=== PATIENT | female | born 1940 | race Caucasian/White ===

== ENCOUNTER 2017-08-14 13:46 | Outpatient (CLI) | payer MEDICARE, OTHER ==
--- NOTE | 2017-08-15 12:33 | DEXA Report ---
DEXA SCAN: 08/14/2017 CLINICAL INDICATION: Postmenopausal. TECHNIQUE: Dual energy x-ray absorptiometry (DXA) was performed on a [employer] system. Regions measured are the AP spine, femoral neck, and, if needed, forearm. COMPARISON: None. In accordance with the International Society for Clinical Densitometry (ISCD) guidelines, data from previous exams may be reanalyzed using current recommendations and techniques. This is done to allow a more accurate basis for comparison with the current study. FINDINGS The data for the lumbar spine is as follows: REGION BMD (g/cm/cm) T-SCORE Z-SCORE L1 0.756 -3.1 -1.0 L2 1.007 -1.6 0.5 L3 1.254 0.5 2.5 L4 1.378 1.5 3.6 TOTAL 1.103 -0.6 1.4 NOTE: All evaluable vertebrae are used for classification. The data for the hip is as follows: REGION BMD (g/cm/cm) T-SCORE Z-SCORE Neck 0.843 -1.4 0.9 TOTAL 0.709 -2.4 -0.2 NOTE: The femoral neck or total proximal femur, whichever is lowest, is used for classification. IMPRESSION THE WHO CLASSIFICATION BASED ON THE INTERNATIONAL REFERENCE STANDARD IS OSTEOPENIA. THE FRACTURE RISK IS INCREASED. RECOMMENDATION: Patients with diagnosis of osteoporosis or osteopenia should have regular bone mineral density assessment. For those eligible for Medicare, routine testing is allowed once every 2 years. Testing frequency can be increased for patients who have rapidly progressing disease or for those who are receiving medical therapy to restore bone mass. COMMENT: World Health Organization (WHO) definitions for osteoporosis and osteopenia: NORMAL BMD: T-score at 1.0 or higher, fracture risk is low. OSTEOPENIA BMD: T-score between 1.0 and -2.5, fracture risk is increased. OSTEOPOROSIS BMD: T-score at 2.5 or lower, fracture risk high. National Osteoporosis Foundation recommends: 1. Obtain adequate dietary calcium (at least 1200 mg per day) and vitamin D (400 -800 international units per day). 2. Participate, as appropriate, in regular weightbearing and muscle- strengthening exercise. 3. Avoid tobacco use and reduce alcohol and caffeine intake. 4. For more detailed information see the website at www.NOF.org. TD: 08/14/2017 18:14 DELIA
== END 2017-08-14 13:47 | disposition home or self-care (01) ==
LOC: DI 13:46
PROVIDERS: ATTEND Internal Medicine
DX: M85.88 Other specified disorders of bone density and structure, other site (principal)
CPT/HCPCS: 77080

== ENCOUNTER 2017-08-22 11:13 | Outpatient (CLI) | payer MEDICARE, OTHER ==
--- NOTE | 2017-08-22 20:06 | CT Report ---
DATE OF SERVICE: 08/22/2017 CT CHEST WITHOUT CONTRAST: 08/22/2017 CLINICAL INDICATION: Chronic cough. Axial CT images of the chest were obtained without intravenous contrast. In accordance with CT protocol optimization, one or more of the following dose reduction techniques were utilized for this exam: Automated exposure control, adjustment of mA and/or KV based on patient size, or use of iterative reconstructive technique. No previous CT is available for comparison The heart and great vessels demonstrate extensive atherosclerotic calcifications. No hilar or mediastinal lymphadenopathy is present. Pectus deformity is incidentally noted. The lungs demonstrate mild emphysema. No pulmonary nodule or mass lesion is appreciated. No focal infiltrate or interstitial edema is appreciated. No effusion or pneumothorax is present. Osseous structures demonstrate pectus deformity and degenerative changes. Limited evaluation of upper abdominal structures demonstrates normal adrenal glands. IMPRESSION: Mild emphysema. TD: 08/22/2017 21:05
== END 2017-08-22 11:14 | disposition home or self-care (01) ==
LOC: DI 11:13
PROVIDERS: ATTEND Internal Medicine
DX: R05 Cough (principal); J43.9 Emphysema, unspecified
CPT/HCPCS: 71250

== ENCOUNTER 2021-01-19 12:47 | Outpatient (CLI) | payer MEDICARE, OTHER ==
--- NOTE | 2021-01-19 14:25 | DEXA Report ---
PROCEDURE: Dexa Spine and/or Hip INDICATIONS: OSTEOPOROSIS TECHNIQUE: Dual energy x-ray absorptiometry (DXA) was performed on a [employer] System. Regions measur ed are the AP Spine, femoral neck, and if needed forearm. COMPARISON: DEXA 08/14/2017 FINDINGS: Lumbar Spine: Bone Mineral Density 1.114 g/cm/cm,T score -0.5, compared to -0.6 Left Hip: Bone Mineral Density 0.714 g/cm/cm,T score -2.3, compared to -2.4 Left Femoral Neck: Bone Mineral Density 0.805 g/cm/cm, T score -1.7, compared to -1.4 (T score greater or equal to -1.0: NORMAL) (T score from -1.1 to -2.4: OSTEOPENIA) (T score less than or equal to -2.5 to: OSTEOPOROSIS) Impression: Borderline osteoporosis within the left hip minimally less prominent when compared to julia or exam. There is progression of now moderate osteopenia within the left femoral neck. Patients with diagnosis of osteoporosis or osteopenia should have regular bone mineral density assess ment. For those eligible for Medicare, routine testing is allowed once every 2 years. Testing frequ ency can be increased for patients who have rapidly progressing disease or for those who are receivin g medical therapy to restore bone mass. Reviewed by: Shannan Coronado MD on 01/19/2021 2:23 PM PDT Approved by: Shannan Coronado MD on 01/19/2021 2:23 PM PDT Station ID: [id number]
== END 2021-01-19 12:48 | disposition home or self-care (01) ==
LOC: DI 12:47
PROVIDERS: ATTEND Internal Medicine
DX: M81.0 Age-related osteoporosis without current pathological fracture (principal)

== ENCOUNTER 2021-07-15 17:30 | Outpatient (CLI) | payer MEDICARE, OTHER | END 2021-07-15 17:31 | disposition critical access hospital (66) | LOC: EMS 17:30 | DX: S01.81XA Laceration without foreign body of other part of head, initial encounter (principal); R04.0 Epistaxis; W18.39XA Other fall on same level, initial encounter; Y93.01 Activity, walking, marching and hiking; Y92.512 Supermarket, store or market as the place of occurrence of the external cause | CPT/HCPCS: A0425; A0429 ==

== ENCOUNTER 2021-07-15 17:46 | Inpatient (IN) | payer MEDICARE, OTHER ==
[2021-07-15] MEDS ORDERED: OXYMETAZOLINE HCL 100 SPRAYS BOTTLE NAS STA (18:06)
--- NOTE | 2021-07-15 18:06 | ED Physician Documentation ---
PD HPI MAJOR TRAUMA - Stated complaint Stated Complaint: GLF - Chief complaint Chief Complaint: Trauma Hd/Nk - History obtained from History obtained from: Patient - Additional information Additional information: Trip and fall hitting her face on the ground, also injuring the left wrist. He is very congested and had nosebleed after the accident. There was no loss of consciousness, and she is not anticoagulated. Other than the face and left wrist, no other injuries. She is up-to-date on tetanus. She declines pain medication on initial evaluation. She would like something for the nasal conge stion. Review of Systems Ten Systems: 10 systems reviewed and negative Constitutional: reports: Reviewed and negative Cardiac: reports: Reviewed and negative Respiratory: reports: Reviewed and negative PD PAST MEDICAL HISTORY - Allergies Allergies/Adverse Reactions: Allergies Allergy/AdvReac Type Severity Reaction Status Date / Time pravastatin Allergy Unknown Verified 07/15/21 19:59 PD ED PE NORMAL - Vitals Vital signs reviewed: Yes - General General: Alert and oriented X 3, No acute distress - HEENT HEENT: PERRL, EOMI, Other (Mild tenderness over the bridge of the nose and the left infraorbital rim. No evidence of entrapment. Evidence of resolved right sided epistaxis. She has a puncture wound on the inner upper left lip without dental tenderness.) - Neck Neck: No bony TTP - Cardiac Cardiac: RRR, No murmur - Respiratory Respiratory: No respiratory distress, Clear bilaterally - Abdomen Abdomen: Non tender - Extremities Extremities: No edema, No calf tenderness / cord, Other (Tenderness over the distal radius on the left without pain with axial loading of the thumb or snuffbox tenderness.) - Neuro Neuro: Alert and oriented X 3, Normal speech - Psych Psych: Normal mood, Normal affect Results - Vitals Vitals: Vital Signs - 24 hr 07/15/21 17:58 Temperature 36.4 C L Heart Rate 93 Respiratory 15 Rate Blood Pressure 205/98 H O2 Saturation 99 Oxygen O2 Source Room air - Labs Labs: Laboratory Tests 07/15/21 07/15/21 07/15/21 19:29 19:29 19:29 WBC 12.8 H RBC 4.02 L Hgb 13.4 Hct 38.8 MCV 96.5 MCH 33.3 H MCHC 34.5 RDW 13.1 Plt Count 236 MPV 9.5 Neut # (Auto) 11.0 H Lymph # (Auto) 0.8 L Preble # (Auto) 0.8 Eos # (Auto) 0.0 Baso # (Auto) 0.1 Absolute Nucleated RBC 0.00 Nucleated RBC % 0.0 PT 11.5 INR 1.0 Sodium 130 L Potassium 4.0 Chloride 95 L Carbon Dioxide 25 Anion Gap 10.0 BUN 20 Creatinine 0.6 Estimated GFR (MDRD) 95 Glucose 110 H Calcium 9.2 - Rads (name of study) CT head and cervical spine Radiology: EMP read contemporaneously CT Face Radiology: EMP read contemporaneously (CT of the maxillofacial shows complex fractures with elements of LeFort and ZMC fractures, left inferior orbital floor fracture, tooth fragment in the right posterior nasopharynx) L wrist XR Radiology: EMP read contemporaneously (NAD) PD MEDICAL DECISION MAKING - ED course ED course: 81-year-old woman with ground-level fall onto her face with complex facial fractures seen on CT which would be considered an unstable injury as well as a retained tooth in the posterior nasopharynx. Dr. Girma Nolasco was consulted and came in to consult on the patient and plans to take her to the OR tomorrow morning for operative fixation. Dr. Fischer our hospitalist will place in observation for medical management and blood pressure management noting fairly high readings here pending surgery tomorrow. Departure - Departure Disposition: ED Place in Observation Clinical Impression: [place] fracture Qualifiers: Encounter type: initial encounter Fracture type: closed Fracture of zygomatic complex Qualifiers: Encounter type: initial encounter Fracture type: closed Laterality: unspecified laterality Qualified Code(s): S02.402A - Zygomatic fracture, unspecified side, initial encounter for closed fracture; S02.30XA - Fracture of orbital floor, unspecified side, initial encounter for closed fracture; S02.401A - Maxillary fracture, unspecified side, initial encounter for closed fracture; S02.80XA - Fracture of other specified skull and facial bones, unspecified side, initial encounter for closed fracture Left wrist sprain Qualifiers: Encounter type: initial encounter Qualified Code(s): S63.502A - Unspecified sprain of left wrist, initial encounter Condition: Fair Discharge Date/Time: 07/15/21 20:48
--- NOTE | 2021-07-15 18:38 | XRAY Report ---
PROCEDURE: Wrist 4 View LT INDICATIONS: Wrist pain and injury TECHNIQUE: 4 views of the wrist were acquired. COMPARISON: None FINDINGS: There is no evidence of fracture. The scaphoid and remaining carpal bones appear intact on each view. There is moderate to severe first CMC osteophyte is catheterized by joint space narrowing, subchondr al sclerosis and cystic change, and marginal osteophytosis. There are a few tiny osseous densities la terally adjacent to the first CMC joint with smooth sclerotic borders which likely represent either r emote fracture fragments or intra-articular loose bodies. There is soft tissue swelling adjacent to t he first CMC. No radiopaque foreign body. IMPRESSION: No evidence of acute fracture or dislocation. 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 Soft tissue swelling adjacent to the first CMC could be traumatic or arthritic in nature. Reviewed by: Reno Hearn MD on 07/15/2021 6:37 PM PST Approved by: Reno Hearn MD on 07/15/2021 6:37 PM PST Station ID: [id number]
--- NOTE | 2021-07-15 19:17 | CT Report ---
PROCEDURE: HEAD WO INDICATIONS: fall, head inj TECHNIQUE: Noncontrast 4.5 mm thick angled axial sections acquired from the foramen magnum to the vertex. For r adiation dose reduction, the following was used: automated exposure control, adjustment of mA and/or kV according to patient size. COMPARISON: None. FINDINGS: No acute intracranial hemorrhage, abnormal extra axial fluid collection, mass effect, or midline shif t. Holguin-white matter differentiation is maintained, without CT evidence of acute infarct. Mild global cerebral volume loss with opacification of the ventricles and extra-axial spaces. The ventricular sy stem and basilar cisterns are patent. Calvarium and skull base are intact. Multiple facial fractures, described in maxillofacial CT report which is dictated separately. IMPRESSION: No acute intracranial finding. Reviewed by: Reno Hearn MD on 07/15/2021 7:16 PM PST Approved by: Reno Hearn MD on 07/15/2021 7:16 PM PST Station ID: [id number]
--- NOTE | 2021-07-15 19:19 | CT Report ---
PROCEDURE: CERVICAL SPINE WO INDICATIONS: Trauma TECHNIQUE: Noncontrast 3 mm thick sections acquired from the skull base to the T4 level. Sagittal and coronal r eformats were then constructed. For radiation dose reduction, the following was used: automated exp osure control, adjustment of mA and/or kV according to patient size. COMPARISON: None. FINDINGS: There is no fracture or dislocation. Straightening of the usual cervical lordosis. No listhesis. No s ubluxation or dislocation. Overall moderate to severe degenerative changes at every level of the cerv ical spine from C3-C4 through C6-C7. No suspicious lytic or blastic osseous lesion. Normal configurat ion of the craniocervical junction. Moderate emphysematous changes in the lung apices. Extensive aort ic and carotid atherosclerotic changes. IMPRESSION: No CT evidence of acute traumatic cervical spine injury. Reviewed by: Reno Hearn MD on 07/15/2021 7:18 PM PST Approved by: Reno Hearn MD on 07/15/2021 7:18 PM PST Station ID: [id number]
--- NOTE | 2021-07-15 19:31 | CT Report ---
PROCEDURE: MAXILLOFACIAL WO INDICATIONS: fall, head inj TECHNIQUE: Noncontrast 1.5 mm thick axial images acquired from the mandible through the frontal sinuses, with co alma rosa and sagittal reformatting. For radiation dose reduction, the following was used: automated ex posure control, adjustment of mA and/or kV according to patient size. COMPARISON: None. FINDINGS: There are numerous facial bones fracture: Mildly displaced left second metacarpal bone fracture near the junction with the greater wing sphenoi d. Mildly displaced and comminuted left inferior orbital floor fracture. No associated intraocular muscl e entrapment. Bilateral lateral maxillary wall fractures, displaced and comminuted. Bilateral medial maxillary sinus wall fractures, highly comminuted and displaced. Comminuted and displaced bony nasal septal fractures and bilateral nasal bone fractures. Mildly displaced fractures of the right lateral pterygoid. Left pterygoid plates intact. Displaced and comminuted fracture of the left maxilla (series 5 image 66). Intact mandible. There is a tooth fragment within the right nasopharynx embedded in the right nasopharyngeal wall soft tissues. Extensive diffuse hemorrhagic aerated secretions throughout the nasal passages and paranasal sinuses. IMPRESSION: Complex bilateral mid radius fractures with elements of LeFort and ZMC complex. Of note, left inferior orbital floor fracture, displaced and comminuted, without inferior EOM entrapm ent. Tooth fragment in the right posterior nasopharynx. Retrieval recommended. Reviewed by: Reno Hearn MD on 07/15/2021 7:30 PM PST Approved by: Reno Hearn MD on 07/15/2021 7:30 PM PST Station ID: [id number]
[2021-07-15 19:35] LABS: BASOPHILS # (AUTO) 0.1 10^3/uL (0.0-0.1); BASOPHILS % (AUTO) 0.6 %; EOSINOPHILS % (AUTO) 0.3 %; HCT - HEMATOCRIT 38.8 % (37.0-47.0); HGB - HEMOGLOBIN 13.4 g/dL (12.0-16.0); LYMPHOCYTES # (AUTO) 0.8 10^3/uL (1.5-3.5); LYMPHOCYTES % (AUTO) 6.4 %; MEAN CORPUSCULAR HEMOGLOBIN 33.3 pg (27.0-31.0); MEAN CORPUSCULAR HGB CONC 34.5 g/dL (32.0-36.0); MEAN CORPUSCULAR VOLUME 96.5 fL (81.0-99.0); MEAN PLATELET VOLUME 9.5 fL (7.9-10.8); MONOCYTES # (AUTO) 0.8 10^3/uL (0.0-1.0); MONOCYTES % (AUTO) 6.2 %; NEUTROPHILS % (AUTO) 86.1 %; PLT - PLATELET COUNT 236 10^3/uL (130-450); RED BLOOD COUNT 4.02 10^6/uL (4.20-5.40); RED CELL DISTRIBUTION WIDTH 13.1 % (12.0-15.0); WHITE BLOOD COUNT 12.8 x10^3/uL (4.8-10.8)
[2021-07-15 19:42] LABS: PT - PROTHROMBIN TIME 11.5 secs (9.9-12.6)
[2021-07-15 19:44] LABS: CALCIUM 9.2 mg/dL (8.5-10.3); CREATININE 0.6 mg/dL (0.4-1.0)
[2021-07-15] MEDS ORDERED: oxyCODONE 5 MG TABLET PO PRN (19:48)
[2021-07-15] MEDS ORDERED: HYDROmorphone 0.5 MG/0.5 ML SYRINGE IVP PRN (19:48)
[2021-07-15] MEDS ORDERED: ONDANSETRON 4 MG/2 ML VIAL IVP PRN (19:48)
[2021-07-15] MEDS ORDERED: SODIUM CHLORIDE FLUSH 0.9% 10 ML SYRINGE IVP PRN (19:48)
[2021-07-15] MEDS ORDERED: ACETAMINOPHEN 325 MG TABLET PO PRN (19:48)
[2021-07-15] MEDS ORDERED: HYDROmorphone 1 MG/ML CARPUJECT IVP STA (19:53)
[2021-07-15] MEDS ORDERED: KETOROLAC 30 MG/ML VIAL IVP STA (19:53)
[2021-07-15] MEDS ORDERED: LABETALOL 20 MG/4 ML SYRINGE IVP PRN (19:59)
[2021-07-15] MEDS ORDERED: hydrALAZINE INJ 20 MG/ML VIAL IVP PRN (20:00)
--- NOTE | 2021-07-15 20:02 | HISTORY & PHYSICAL EXAMINATION ---
Chief Complaint - Chief Complaint Chief Complaint: s/p mechanical fall History of Present Illness - Admitted From Admitted From:: [facility] ED - History Obtained From Records Reviewed: yes History obtained from: patient - History of Present Illness HPI Comment/Other: Patient is an 81-year-old female who presented to the ED after a mechanical f all. She was living [employer] in [place] around 5 PM when she stepped off the curb lost her footing and fell on the left side hitting the left side of her face. It was a witnessed fall. She did not blackout. She denied dizziness prior to the episode. She has bruising on her left wrist as well. Currently at bedside she denies double vision, blurry vision or headaches. She also denies chest pain, dyspnea, abdominal pain, nausea, vomiting, fever or chills. Work-up in the ED included CT of the head neck and maxillofacial structures. This showed complex bilateral mid radius fractures with elements of LeFort and ZMC complex of note, left inferior orbital floor fracture, displaced and commi nuted, without inferior EOM extract meant. It was reported that tooth fragment in the right posterior nasopharynx for which retrieval was recommended however patient was seen by Dr. Girma Nolasco who ma intains that the patient has no dentition. Note of the patient's presentation and the current findings she was admitted for further treatment. History - Past Medical History Cardiovascular: reports: Hypertension Other Past Medical History: History of colon cancer status post hemicolectomy. - Past Surgical History General: reports: Bowel surgery HEENT: reports: Tonsil/Adenoidectomy - Family & Social History Family History Comment/Other: Patient denies any significant family history. Living arrangement: At home Social History Notes: She lives at home with her . She is independent of activities of daily living. She smokes about half a pack of cigarettes daily and has been smoking for 40+ years. She drinks a glass of wine daily. She does not use any recreational substances. - POLST Patient has POLST: No POLST Status: Full Code Meds/Allgy - Allergies Allergies/Adverse Reactions: Allergies Allergy/AdvReac Type Severity Reaction Status Date / Time pravastatin Allergy Unknown Verified 07/15/21 19:59 Review of Systems - Constitutional Constitutional: denies: Fatigue, Fever, Chills, Weakness - Eyes Eyes: denies: Pain, Blurred vision, Vision loss, Dipolpia - Ears, Nose & Throat Ears, Nose & Throat: denies: Ear pain, Sore throat, Hoarseness - Cardiovascular Cariovascular: denies: Irregular heart rate, Chest pain, Edema - Respiratory Respiratory: denies: Cough, Wheezing, SOB at rest, SOB with exertion - Gastrointestinal Gastrointestinal: denies: Abdominal pain, Abdominal distention, Nausea, Vomiting, Reflux/heartburn - Genitourinary Genitourinary: denies: Dysuria, Frequency, Urgency, Hematuria - Musculoskeletal Musculoskeletal: denies: Muscle pain, Back pain, Muscle aches - Integumentary Integumentary: denies: Rash, Pruritis - Neurological Neurological: denies: General weakness, Focal weakness, Headache, Dizziness - Psychiatric Psychiatric: denies: Depression, Anxiety - Endocrine Endocrine: denies: Polyuria, Polydypsia - Hematologic/Lymphatic Hematologic/Lymphatic: denies: Anemia, Bruising, Petechiae Prior Level of Functionality: Independent of activities of daily living. Exam - Vital Signs Vital Signs: Vital Signs x48h Temp Pulse Resp BP Pulse Ox 07/15/21 17:58 97.5 C H 93 15 205/98 H 99 - Physical Exam General Appearance: positive: Alert, Moderate distress, Other Eyes Bilateral: positive: PERRL, EOMI ENT: positive: Other (Left facial swelling and bruising.) Neck: positive: No JVD, Trachea midline Respiratory: positive: Chest non-tender, No respiratory distress, Breath sounds nml. negative: Wheezes, Rales, Rhonchi Cardiovascular: positive: Regular rate & rhythm, No murmur Abdomen: positive: Non-tender, No organomegaly, Nml bowel sounds, No distention. negative: Guarding, Rebound Back: positive: Nml inspection, CVA tenderness (R) Skin: positive: Other (Bruising on the left side of the face and swelling. Bruising on the left wrist as well.) Extremities: positive: No pedal edema, Other (Left wrist bruising) Neurologic/Psychiatric: positive: Oriented x3, Mood/affect nml Conclusion/Plan - Problem List (1) Fracture of zygomatic complex Conclusion/Plan: Patient is currently on full liquid diet. She will be n.p.o. after midnight. IV hydration with normal saline at 75 mL/h. Pain management with Dilaudid and Toradol IV. Dr. Girma Nolasco with maxillofacial surgery was consulted and saw the patient at bedside. He plans for surgery in the morning. Patient's jaw will be wired shut and this will be maintained for 1 month. She would maintain a liquid diet for 1 month. Pain management as needed. Follow-up with Dr. Girma Nolasco in the outpatient setting. Qualifiers: Encounter type: initial encounter Fracture type: closed Laterality: unspecified laterality Qualified Code(s): S02.402A - Zygomatic fracture, unspecified side, initial encounter for closed fracture; S02.30XA - Fracture of orbital floor, unspecified side, initial encounter for closed fracture; S02.401A - Maxillary fracture, unspecified side, initial encounter for closed fracture; S02.80XA - Fracture of other specified skull and facial bones, unspecified side, initial encounter for closed fracture (2) Hypertensive urgency Conclusion/Plan: Systolic blood pressure was 205 at time of presentation to the ED. This was likely exacerbated by patient's pain. Patient takes lisinopril at home. Hydralazine and Labetalol ordered IV for systolic blood pressure greater than 160. (3) Left wrist sprain Conclusion/Plan: Pain management as needed. Qualifiers: Encounter type: initial encounter Qualified Code(s): S63.502A - Unspecified sprain of left wrist, initial encounter - Lab Results Fish Bones: 07/15/21 19:29 07/15/21 19:29 Core Measures - Anticipated LOS I expect patient to be DC'd or transferred within 96 hours.: Yes - DVT/VTE - Prophylaxis VTE/DVT Device ordered at admit?: Yes
--- NOTE | 2021-07-15 21:00 | CONSULTATION NOTE ---
Referring Provider Name of Referring Provider:: Carlin Cheema Consult Date: 07/15/21 Chief Complaint - Chief Complaint Chief Complaint: Facial trauma History of Present Illness - Admitted From Admitted From:: ER - History Obtained From Records Reviewed: Yes History obtained from: Records and patient - History of Present Illness HPI Comment/Other: 81 yo F s/p GLF, sustaining facial and wrist injuries. CT max face taken in ER, demonstrating multiple facial fractures. Wrist film negative for acute bony injury CT c-spine and head negative No LOC Accompanied by her . Mechanism: Trip and fall onto asphalt. Meds/Allgy - Allergies Allergies/Adverse Reactions: Allergies Allergy/AdvReac Type Severity Reaction Status Date / Time pravastatin Allergy Unknown Verified 07/15/21 19:59 Review of Systems - Constitutional Constitutional: denies: Fever, Malaise - Eyes Eyes: reports: Pain. denies: Blurred vision, Dipolpia - Ears, Nose & Throat Ears, Nose & Throat: denies: Ear pain, Hearing loss - Cardiovascular Cariovascular: denies: Irregular heart rate, Chest pain - Respiratory Respiratory: denies: Cough, Hemoptysis - Gastrointestinal Gastrointestinal: denies: Abdominal pain - Musculoskeletal Musculoskeletal: reports: Other (Pain in the L wrist when planting with the hand, otherwise negative) - Integumentary Integumentary: reports: Other (laceration of the upper lip) - Neurological Neurological: reports: Numbness. denies: Headache, Dizziness - Psychiatric Psychiatric: denies: Depression Exam - Vital Signs Reviewed Vital Signs: Yes Vital Signs: Vital Signs x48h Temp Pulse Resp BP Pulse Ox 07/15/21 17:58 36.4 C L 93 15 205/98 H 99 - Physical Exam General Appearance: positive: No acute distress, Alert Eyes Bilateral: positive: PERRL, EOMI (L periorbital edema and ecchymosis. Subconjunctival hemmorhage L. No diplopia. No enopthalmos or exophthalmos. Mild R periorbital ecchymosis w/out edema.) ENT: positive: Other (Open bite on the L. Maxilla mobile to bimanual manipulation. TTP, edema, ecchymosis of the L periobital, infraorbital regions and dorsum of the nose. Teeth intact, with a distinct step in the R maxillary anterior teeth. Oropharynx: examined w/ tongue blade and flashlight, no FB) Neck: positive: Other (No cervical spine ttp. Inferior border of the mandible nontender, no stepoffs.) Respiratory: positive: Chest non-tender, No respiratory distress Cardiovascular: positive: Regular rate & rhythm Peripheral Pulses: positive: 2+ Abdomen: positive: Non-tender, No distention Skin: positive: Other (Laceration of the L upper lip less than one cm, on the lenora, communicating w/ the oral mucosa where the laceration component is 1.5 cm) Extremities: positive: Full ROM (There is marked swelling and ecchymosis of the L dorsum of the hand.) Neurologic/Psychiatric: positive: CN's nml (2-12) (With exception of L V2 hypoesthesia) Conclusion and Plan - Lab Results Laboratory Results 07/15/21 19:29: Sodium 130 L, Potassium 4.0, Chloride 95 L, Carbon Dioxide 25, Anion Gap 10.0, BUN 20, Creatinine 0.6, Estimated GFR (MDRD) 95, Glucose 110 H, Calcium 9.2 07/15/21 19:29: PT 11.5, INR 1.0 07/15/21 19:29: WBC 12.8 H, RBC 4.02 L, Hgb 13.4, Hct 38.8, MCV 96.5, MCH 33.3 H, MCHC 34.5, RDW 13.1, Plt Count 236, MPV 9.5, Neut # (Auto) 11.0 H, Lymph # (Auto) 0.8 L, [place] # (Auto) 0.8, Eos # (Auto) 0.0, Baso # (Auto) 0.1, Absolute Nucleated RBC 0.00, Nucleated RBC % 0.0 - Diagnosis Diagnosis: Leforte Fracture - Consultation Note Consultation Note: 81 yo F s/p mechanical GLF onto asphalt sustaining the following maxillofacial injuries: 1. Lefort I fracture 2. L lateral orbtial rim fracture 3. Upper lip laceration 1.5 cm, involving the lenora 4. L orbital floor fracture w/out entrapment or significant orbital volume increase 5. Dentoalveolar fracture of the maxillary alveolus - Plan Plan: Plan: ORIF of the above injuries in the MOR tomorrow at 10:30 am. - Full liquid diet until midnight - NPO after midnight - Unasyn 3g q6h - elevate HOB - will search again for foreign body of the airway tomorrow when she is sedated. The fact that there are no teeth missing makes the likelihood of a FB low. - Peridex mouthrinse BID - nutrition consult for full liquid diet - anticipate one month of intermaxillary fixation and full liquid diet. Thank you for including me in the care of Mrs. Bose. Please let me know if you have any questions. Girma Nolasco DDS [phone]
[2021-07-15 21:06] LABS: B. PARAPERTUSSIS- RESP PCR PAN NOT DETECTED; B. PERTUSSIS- RESP PCR PANEL NOT DETECTED; C. PNEUMONIAE- RESP PCR PANEL NOT DETECTED; CORONAVIRUS 229E-RESP PCR NOT DETECTED; CORONAVIRUS HKU1-RESP PCR NOT DETECTED; CORONAVIRUS NL63-RESP PCR NOT DETECTED; CORONAVIRUS OC43-RESP PCR NOT DETECTED; HUMAN METAPNEUMOVIRUS NOT DETECTED; INFLUENZA A- RESP PCR PANEL NOT DETECTED; INFLUENZA B - RESP PCR PANEL NOT DETECTED; M. PNEUMONIAE- RESP PCR PANEL NOT DETECTED; PARAINFLUENZA VIRUS 1 NOT DETECTED; PARAINFLUENZA VIRUS 2 NOT DETECTED; PARAINFLUENZA VIRUS 3 NOT DETECTED; PARAINFLUENZA VIRUS 4 NOT DETECTED; RHINOVIRUS/ENTEROVIRUS NOT DETECTED; RSV- RESP PCR PANEL NOT DETECTED; SARS-CoV-2 -RESP PCR PANEL NOT DETECTED
[2021-07-15] MEDS: SODIUM CHLORIDE FLUSH 0.9% 10 ML SYRINGE IVP SCH (21:29)
[2021-07-15] MEDS: SODIUM CHLORIDE 0.9% 1,000 ML IV SCH (21:30)
[2021-07-16 05:43] LABS: BASOPHILS # (AUTO) 0.1 10^3/uL (0.0-0.1); EOSINOPHILS % (AUTO) 0.4 %; LYMPHOCYTES # (AUTO) 0.9 10^3/uL (1.5-3.5); LYMPHOCYTES % (AUTO) 12.9 %; MEAN CORPUSCULAR HEMOGLOBIN 34.1 pg (27.0-31.0); MEAN CORPUSCULAR HGB CONC 35.3 g/dL (32.0-36.0); MEAN CORPUSCULAR VOLUME 96.6 fL (81.0-99.0); MEAN PLATELET VOLUME 9.9 fL (7.9-10.8); MONOCYTES # (AUTO) 0.6 10^3/uL (0.0-1.0); MONOCYTES % (AUTO) 8.4 %; NEUTROPHILS # (AUTO) 5.6 10^3/uL (1.5-6.6); PLT - PLATELET COUNT 218 10^3/uL (130-450); RED BLOOD COUNT 3.52 10^6/uL (4.20-5.40); RED CELL DISTRIBUTION WIDTH 13.2 % (12.0-15.0); WHITE BLOOD COUNT 7.3 x10^3/uL (4.8-10.8)
[2021-07-16 05:49] LABS: CALCIUM 8.6 mg/dL (8.5-10.3); CREATININE 0.6 mg/dL (0.4-1.0); POTASSIUM 3.8 mmol/L (3.5-5.0)
--- NOTE | 2021-07-16 09:42 | ANESTHESIA ---
Pre-Anesthesia VS, & Labs - Diagnosis Diagnosis Leforte Fracture - Procedure ORIF [place] I fracture Vital Signs: Temp Pulse Resp BP Pulse Ox 36.5 C 65 20 132/65 H 96 07/16/21 07:31 07/16/21 07:31 07/16/21 07:31 07/16/21 07:31 07/16/21 07:31 Height: 5 ft 7 in Weight (kg): 55 kg Body Mass Index: 19.0 BMI Classification: Healthy weight - NPO >8 hours - Is Patient ?: No - Lab Results Current Lab Results: Laboratory Tests 07/16/21 05:16: Sodium 129 L, Potassium 3.8, Chloride 96 L, Carbon Dioxide 25, Anion Gap 8.0, BUN 22 H, Creatinine 0.6, Estimated GFR (MDRD) 95, Glucose 117 H, Calcium 8.6 07/16/21 05:16: WBC 7.3, RBC 3.52 L, Hgb 12.0, Hct 34.0 L, MCV 96.6, MCH 34.1 H, MCHC 35.3, RDW 13.2, Plt Count 218, MPV 9.9, Neut # (Auto) 5.6, Lymph # (Auto) 0.9 L, Jack # (Auto) 0.6, Eos # (Auto) 0.0, Baso # (Auto) 0.1, Absolute Nucleated RBC 0.00, Nucleated RBC % 0.0 07/15/21 19:29: Sodium 130 L, Potassium 4.0, Chloride 95 L, Carbon Dioxide 25, Anion Gap 10.0, BUN 20, Creatinine 0.6, Estimated GFR (MDRD) 95, Glucose 110 H, Calcium 9.2 07/15/21 19:29: PT 11.5, INR 1.0 07/15/21 19:29: WBC 12.8 H, RBC 4.02 L, Hgb 13.4, Hct 38.8, MCV 96.5, MCH 33.3 H , MCHC 34.5, RDW 13.1, Plt Count 236, MPV 9.5, Neut # (Auto) 11.0 H, Lymph # (Auto) 0.8 L, Jack # (Auto) 0.8, Eos # (Auto) 0.0, Baso # (Auto) 0.1, Absolute Nucleated RBC 0.00, Nucleated RBC % 0.0 Lab results reviewed: Yes Fish Bones: 07/16/21 05:16 07/16/21 05:16 Home Medications and Allergies Home Medications: Ambulatory Orders lisinopriL [Lisinopril] 20 mg PO DAILY 07/16/21 Active Medications Acetaminophen (Acetaminophen 325 Mg Tablet) 650 mg PO Q4HR PRN PRN Reason: Pain 1 to 4 Last Admin: 07/16/21 05:34 Dose: 650 mg Documented by: Hydralazine HCl (Hydralazine Inj 20 Mg/Ml Vial) 10 mg IVP Q4H PRN PRN Reason: PER PHYSICIAN ORDER Hydromorphone HCl (Hydromorphone 0.5 Mg/0.5 Ml Syringe) 0.5 mg IVP Q2H PRN PRN Reason: Pain 8 to 10 Sodium Chloride (Normal Saline 0.9%) 1,000 mls @ 75 mls/hr IV .[id number] [facility] Last Admin: 07/15/21 21:30 Dose: 75 mls/hr Documented by: Ketorolac Tromethamine (Ketorolac 15 Mg/Ml Vial) 15 mg IVP Q6HR PRN PRN Reason: PAIN Stop: 07/20/21 21:37 Labetalol HCl (Labetalol 20 Mg/4 Ml Syringe) 10 mg IVP Q4H PRN PRN Reason: PER PHYSICIAN ORDER Ondansetron HCl (Ondansetron 4 Mg/2 Ml Vial) 4 mg IVP Q6HR PRN PRN Reason: Nausea / Vomiting Oxycodone HCl (Oxycodone 5 Mg Tablet) 5 mg PO Q4HR PRN PRN Reason: Pain 5 to 7 Last Admin: 07/16/21 05:34 Dose: 5 mg Documented by: Sodium Chloride (Sodium Chloride Flush 0.9% 10 Ml Syringe) 10 ml IVP PRN PRN PRN Reason: NEEDED PER PROVIDER ORDERS Sodium Chloride (Sodium Chloride Flush 0.9% 10 Ml Syringe) 10 ml IVP 0100,0900,1700 [facility] Last Admin: 07/15/21 21:29 Dose: 10 ml Documented by: lisinopriL [Lisinopril] 20 mg PO DAILY 07/16/21 Allergies/Adverse Reactions: Allergies Allergy/AdvReac Type Severity Reaction Status Date / Time pravastatin Allergy Unknown Verified 07/15/21 19:59 Anes History & Medical History - Anesthetic History Anesthesia Complications: reports: No previous complications Family history of Anesthesia Complications: Denies Family history of Malignant Hyperthermia: Denies - Medical History Cardiovascular: reports: Hypertension Pulmonary: reports: None Gastrointestinal: reports: None Urinary: reports: None Neuro: reports: None Musculoskeletal: reports: None Blood Disorders: reports: None Skin: reports: None Smoking Status: Current every day smoker Other Past Medical History: History of colon cancer status post hemicolectomy. - Surgical History General: reports: Bowel surgery Eyes Ears Nose Throat (EENT): reports: Tonsil/Adenoidectomy Gynecologic: reports: section Exam General: Alert, Oriented x3, Cooperative, No acute distress Dental: Poor dentition, Other (missing teeth prior to fall) Mouth Openin Fingerbreadth Neck Mobility: Normal Mallampati classification: III Respiratory: Lungs clear, Normal breath sounds, No respiratory distress, No accessory muscle use Cardiovascular: Regular rate, Normal S1, Normal S2, No murmurs Plan Anesthesia Type: General Consent for Procedure(s) Verified and Reviewed: Yes Code Status: Attempt Resuscitation ASA classification: 3-Severe systemic disease Is this case an emergency?: No
[2021-07-16] MEDS ORDERED: PROPOFOL 200 MG/20 ML VIAL IVP ONE (09:48)
[2021-07-16] MEDS ORDERED: LIDOCAINE-MPF 2% 5 ML VIAL ONE ×2 (09:48→13:37)
[2021-07-16] MEDS ORDERED: DEXAMETHASONE 4 MG/ML VIAL ONE (09:48)
[2021-07-16] MEDS ORDERED: ONDANSETRON 4 MG/2 ML VIAL ONE (09:48)
[2021-07-16] MEDS ORDERED: fentaNYL 100 MCG/2 ML VIAL ONE (09:48)
[2021-07-16] MEDS ORDERED: ROCURONIUM 50 MG/5 ML VIAL ONE (09:49)
[2021-07-16] MEDS ORDERED: OXYMETAZOLINE HCL 100 SPRAYS BOTTLE ONE (10:35)
[2021-07-16] MEDS ORDERED: BACITRACIN ZINC OINT 1 PACKET TOP ONE (10:35)
[2021-07-16] MEDS ORDERED: LIDOCAINE MPF 2%-EPI 1:200000 20 ML VIAL ONE (10:36)
[2021-07-16] MEDS ORDERED: HYDROmorphone 0.5 MG/0.5 ML SYRINGE IVP PRN (10:48)
[2021-07-16] MEDS ORDERED: fentaNYL 100 MCG/2 ML VIAL IVP PRN (10:48)
[2021-07-16] MEDS ORDERED: NALOXONE 0.4 MG/ML VIAL IVP PRN (10:48)
[2021-07-16] MEDS ORDERED: MORPHINE 2 MG/ML CARPUJECT IVP PRN (10:48)
[2021-07-16] MEDS ORDERED: ePHEDrine 50 MG/ML VIAL IVP PRN (10:48)
[2021-07-16] MEDS ORDERED: ONDANSETRON 4 MG/2 ML VIAL IVP PRN (10:48)
[2021-07-16] MEDS ORDERED: METOCLOPRAMIDE 10 MG/2 ML VIAL IVP PRN (10:48)
[2021-07-16] MEDS ORDERED: ATROPINE ABBOJECT 1 MG/10 ML SYRINGE IVP PRN (10:48)
[2021-07-16] MEDS: SODIUM CHLORIDE FLUSH 0.9% 10 ML SYRINGE IVP SCH ×2 (10:52→16:04)
[2021-07-16] MEDS: SODIUM CHLORIDE 0.9% 1,000 ML IV SCH (10:52)
[2021-07-16] MEDS ORDERED: LACTATED RINGERS 1,000 ML IV SCH (11:00)
[2021-07-16] MEDS ORDERED: ceFAZolin 1 GM VIAL ONE (11:01)
[2021-07-16] MEDS ORDERED: MINERAL OIL/PETROLAT OPHTH OINT ONE (11:31)
[2021-07-16] MEDS ORDERED: CHLORHEXIDINE GLUCONATE 15 ML UDC PO ONE (11:38)
[2021-07-16] MEDS ORDERED: CARBOXYMETHYLCELLULOSE OPHTH DROPS EACHEYE ONE (11:42)
[2021-07-16] MEDS ORDERED: ePHEDrine 50 MG/ML VIAL IVP ONE (11:43)
[2021-07-16] MEDS ORDERED: GLYCOPYRROLATE 1 MG/5 ML VIAL ONE (11:45)
[2021-07-16] MEDS ORDERED: LIDOCAINE MPF 2%-EPI 1:200000 20 ML VIAL SUBQ ONE (12:54)
[2021-07-16] MEDS ORDERED: OXYMETAZOLINE HCL 100 SPRAYS BOTTLE NAS ONE (12:55)
[2021-07-16] MEDS ORDERED: SUGAMMADEX 200 MG/2 ML VIAL IVP ONE (13:37)
[2021-07-16] MEDS ORDERED: LACTATED RINGERS 1,000 ML IV ONE (14:20)
--- NOTE | 2021-07-16 14:36 | ANESTHESIA POST OP EVALUATION ---
Anesthesia Post Eval - Post Anesthesia Eval Vitals: Last Vital Signs Temp 36.5 C 07/16/21 07:31 Pulse 88 07/16/21 14:30 Resp 13 07/16/21 14:30 BP 148/69 H 07/16/21 14:30 Pulse Ox 98 07/16/21 14:30 CV Function Including HR & BP: Stable Pain Control: Satisfactory Nausea & Vomiting: Negative Mental Status: Baseline Respiratory Status: Airway Patent Hydration Status: Satisfactory Anesthesia Complications: None
[2021-07-16] MEDS: KETOROLAC 15 MG/ML VIAL IVP PRN ×2 (14:51→21:56)
[2021-07-16] MEDS ORDERED: KETOROLAC 15 MG/ML VIAL ONE (14:58)
[2021-07-16] MEDS: DEXTROSE 5%-0.9% NACL 1,000 ML IV SCH (15:49)
--- NOTE | 2021-07-16 15:51 | PROVIDER PROGRESS NOTE ---
Assessment/Plan - Problem List (1) Fracture of zygomatic complex Qualifiers: Encounter type: initial encounter Fracture type: closed Laterality: unspe cified laterality Qualified Code(s): S02.402A - Zygomatic fracture, unspe cified side, initial encounter for closed fracture; S02.30XA - Fracture of orbital floor, unspecified side, initial encounter for closed fracture; S02.401A - Maxillary fracture, unspecified side, initial encounter for closed fracture; S02.80XA - Fracture of other specified skull and facial bones, unspecified side, initial encounter for closed fracture Assessment/Plan: 07/16 pt just had jaw repair surgery done by surgeon, we will continue consult with surgeon, and followup with recommendation. Pain control, gentle IVF with D5 since pt just finish surgery and difficult to swallow. leave message to surgeon to see if pt need short term of antibiotics. we will continue vital sign and lab monitor pt Follow-up with Dr. Girma Nolasco in the outpatient setting after d/c. encourage pt early as possible to have safely ambulate. (2) HTN stable, resume home Lisinopril, continue as needed for hydralazine and labetalol. (3) Left wrist sprain Xray reveal Fracture or dislocation, continue Pain control. (4)hyponatremia pt's sodium is 129, slight elevated BUN, likely hypovolumia with hyponatremia. IVF with D5 NS, continue lab monitor. - Current Meds Current Meds: Current Medications Generic Name Dose Route Start Last Admin Trade Name Freq PRN Reason Stop Dose Admin Acetaminophen 650 mg 07/15/21 19:48 07/16/21 05:34 Acetaminophen 325 Mg Tablet PO 650 mg Q4HR PRN Administration Pain 1 to 4 Ketorolac Tromethamine 15 mg 07/15/21 21:38 07/16/21 14:51 Ketorolac 15 Mg/Ml Vial IVP 07/20/21 21:37 15 mg Q6HR PRN Administration PAIN Oxycodone HCl 5 mg 07/15/21 19:48 07/16/21 05:34 Oxycodone 5 Mg Tablet PO 5 mg Q4HR PRN Administration Pain 5 to 7 Sodium Chloride 10 ml 07/16/21 01:00 07/16/21 10:52 Sodium Chloride Flush 0.9% 10 Ml Syringe IVP Not Given 0100,0900,1700 IFENAYI - Lab Result Fish Bone Diagrams: 07/16/21 05:16 07/16/21 05:16 - Additional Planning My Orders: My Active Orders 07/16/21 11:39 Nutrition Consult [CONS] Routine 07/16/21 15:44 Admit [Admit \ Transfer \ Status] [RC] .ONCE 07/16/21 16:00 Dextrose 5%-0.9% NaCl [D5ns] 1,000 ml IV 100 mls/hr Subjective - Subjective Patient Reports: Resting Comfortably Objective Vital Signs: Vital Signs - 24 hr 07/15/21 07/15/21 07/16/21 17:58 20:50 00:00 Temperature 36.4 C L 36.4 C L 36.4 C L Heart Rate 93 Heart Rate [ 87 89 Brachial] Respiratory 15 20 20 Rate Blood Pressure 205/98 H Blood Pressure 180/92 H 163/84 H [Left Brachial artery] Blood Pressure [Right Brachial artery] O2 Saturation 99 100 100 07/16/21 07/16/21 07/16/21 05:43 07:31 14:20 Temperature 36.5 C 36.5 C 36.9 C Heart Rate 92 Heart Rate [ 69 65 Brachial] Respiratory 20 20 18 Rate Blood Pressure 145/72 H Blood Pressure [Left Brachial artery] Blood Pressure 157/73 H 132/65 H [Right Brachial artery] O2 Saturation 99 96 100 07/16/21 07/16/21 07/16/21 14:25 14:30 14:36 Temperature Heart Rate 86 88 85 Heart Rate [ Brachial] Respiratory 21 13 16 Rate Blood Pressure 153/63 H 148/69 H 149/72 H Blood Pressure [Left Brachial artery] Blood Pressure [Right Brachial artery] O2 Saturation 100 98 97 07/16/21 07/16/21 07/16/21 14:41 14:45 14:50 Temperature 37 C 37 C Heart Rate 84 86 88 Heart Rate [ Brachial] Respiratory 16 16 16 Rate Blood Pressure 141/71 H 147/66 H 146/75 H Blood Pressure [Left Brachial artery] Blood Pressure [Right Brachial artery] O2 Saturation 96 96 95 07/16/21 15:00 Temperature 36.7 C Heart Rate Heart Rate [ 82 Brachial] Respiratory 20 Rate Blood Pressure Blood Pressure [Left Brachial artery] Blood Pressure 149/68 H [Right Brachial artery] O2 Saturation 93 Oxygen O2 Source Room air I&O (Last 24 Hrs): Intake and Output Totals x24h 07/14/21 07/15/21 07/16/21 23:59 23:59 23:59 Intake Total 118 1000 Balance 118 1000 General: Alert, Cooperative, Mild distress HEENT: Other (traumatic after she had fall, left facial is swelling, left eye bruise [place].) Neck: Supple Lymphatic: no adenopathy Neuro: Alert, Non Focal Cardiovascular: Regular rate, Normal S1, Normal S2 Respiratory: Chest non-tender, No respiratory distress Abdomen: Normal bowel sounds, Soft Extremities: Normal pulses - Results Results: Laboratory Results WBC 7.3 x10^3/uL (4.8-10.8) 07/16/21 05:16 RBC 3.52 10^6/uL (4.20-5.40) L 07/16/21 05:16 Hgb 12.0 g/dL (12.0-16.0) 07/16/21 05:16 Hct 34.0 % (37.0-47.0) L 07/16/21 05:16 MCV 96.6 fL (81.0-99.0) 07/16/21 05:16 MCH 34.1 pg (27.0-31.0) H 07/16/21 05:16 MCHC 35.3 g/dL (32.0-36.0) 07/16/21 05:16 RDW 13.2 % (12.0-15.0) 07/16/21 05:16 Plt Count 218 10^3/uL (130-450) 07/16/21 05:16 MPV 9.9 fL (7.9-10.8) 07/16/21 05:16 Neut # (Auto) 5.6 10^3/uL (1.5-6.6) 07/16/21 05:16 Lymph # (Auto) 0.9 10^3/uL (1.5-3.5) L 07/16/21 05:16 [place] # (Auto) 0.6 10^3/uL (0.0-1.0) 07/16/21 05:16 Eos # (Auto) 0.0 10^3/uL (0.0-0.7) 07/16/21 05:16 Baso # (Auto) 0.1 10^3/uL (0.0-0.1) 07/16/21 05:16 Absolute Nucleated RBC 0.00 x10^3/uL 07/16/21 05:16 Nucleated RBC % 0.0 /100WBC 07/16/21 05:16 PT 11.5 secs (9.9-12.6) 07/15/21 19:29 INR 1.0 (0.8-1.2) 07/15/21 19:29 Sodium 129 mmol/L (135-145) L 07/16/21 05:16 Potassium 3.8 mmol/L (3.5-5.0) 07/16/21 05:16 Chloride 96 mmol/L (101-111) L 07/16/21 05:16 Carbon Dioxide 25 mmol/L (21-32) 07/16/21 05:16 Anion Gap 8.0 (6-13) 07/16/21 05:16 BUN 22 mg/dL (6-20) H 07/16/21 05:16 Creatinine 0.6 mg/dL (0.4-1.0) 07/16/21 05:16 Estimated GFR (MDRD) 95 (>89) 07/16/21 05:16 Glucose 117 mg/dL (70-100) H 07/16/21 05:16 Calcium 8.6 mg/dL (8.5-10.3) 07/16/21 05:16 Nasal Adenovirus (PCR) NOT DETECTED 07/15/21 20:15 Nasal B. parapertussis DNA (PCR) NOT DETECTED 07/15/21 20:15 Nasal Coronavir 229E PCR NOT DETECTED 07/15/21 20:15 Nasal Coronavir HKU1 PCR NOT DETECTED 07/15/21 20:15 Nasal Coronavir NL63 PCR NOT DETECTED 07/15/21 20:15 Nasal Coronavir OC43 PCR NOT DETECTED 07/15/21 20:15 Nasal Enterovir/Rhinovir PCR NOT DETECTED 07/15/21 20:15 Nasal Influenza B PCR NOT DETECTED 07/15/21 20:15 Nasal Influenza A PCR NOT DETECTED 07/15/21 20:15 Nasal Parainfluen 1 PCR NOT DETECTED 07/15/21 20:15 Nasal Parainfluen 2 PCR NOT DETECTED 07/15/21 20:15 Nasal Parainfluen 3 PCR NOT DETECTED 07/15/21 20:15 Nasal Parainfluen 4 PCR NOT DETECTED 07/15/21 20:15 Nasal RSV (PCR) NOT DETECTED 07/15/21 20:15 Nasal B.pertussis DNA PCR NOT DETECTED 07/15/21 20:15 Nasal C.pneumoniae (PCR) NOT DETECTED 07/15/21 20:15 Karlos Human Metapneumo PCR NOT DETECTED 07/15/21 20:15 Nasal M.pneumoniae (PCR) NOT DETECTED 07/15/21 20:15 Nasal SARS-CoV-2 (PCR) NOT DETECTED 07/15/21 20:15 Blood Type O POSITIVE 07/16/21 10:35 Blood Type Recheck O POSITIVE 07/16/21 05:16 Antibody Screen NEGATIVE 07/16/21 10:35 ABX Reporting Has patient been on IV antibiotics over the past 48 hours?: No Current Medications - Current Medications Current Medications: Active Medications Acetaminophen (Acetaminophen 325 Mg Tablet) 650 mg PO Q4HR PRN PRN Reason: Pain 1 to 4 Last Admin: 07/16/21 05:34 Dose: 650 mg Documented by: Hydralazine HCl (Hydralazine Inj 20 Mg/Ml Vial) 10 mg IVP Q4H PRN PRN Reason: PER PHYSICIAN ORDER Hydromorphone HCl (Hydromorphone 0.5 Mg/0.5 Ml Syringe) 0.5 mg IVP Q2H PRN PRN Reason: Pain 8 to 10 Dextrose/Sodium Chloride (D5ns) 1,000 mls @ 100 mls/hr IV .Q10H IFEANYI Stop: 07/17/21 11:59 Last Admin: 07/16/21 15:49 Dose: 100 mls/hr Documented by: Ketorolac Tromethamine (Ketorolac 15 Mg/Ml Vial) 15 mg IVP Q6HR PRN PRN Reason: PAIN Stop: 07/20/21 21:37 Last Admin: 07/16/21 14:51 Dose: 15 mg Documented by: Labetalol HCl (Labetalol 20 Mg/4 Ml Syringe) 10 mg IVP Q4H PRN PRN Reason: PER PHYSICIAN ORDER Lisinopril (Lisinopril 20 Mg Tablet) 20 mg PO DAILY IFEANYI Ondansetron HCl (Ondansetron 4 Mg/2 Ml Vial) 4 mg IVP Q6HR PRN PRN Reason: Nausea / Vomiting Oxycodone HCl (Oxycodone 5 Mg Tablet) 5 mg PO Q4HR PRN PRN Reason: Pain 5 to 7 Last Admin: 07/16/21 05:34 Dose: 5 mg Documented by: Sodium Chloride (Sodium Chloride Flush 0.9% 10 Ml Syringe) 10 ml IVP PRN PRN PRN Reason: NEEDED PER PROVIDER ORDERS Sodium Chloride (Sodium Chloride Flush 0.9% 10 Ml Syringe) 10 ml IVP 0100,0900,1700 IFEANYI Last Admin: 07/16/21 10:52 Dose: Not Given Documented by: lisinopriL [Lisinopril] 20 mg PO DAILY 07/16/21
[2021-07-16] MEDS: AMPICILLIN/SULBACTAM 3 GM in SODIUM CHLORIDE 0.9% MINIBAG 100 ML IV SCH (17:34)
[2021-07-17] MEDS: SODIUM CHLORIDE FLUSH 0.9% 10 ML SYRINGE IVP SCH ×2 (00:07→10:07)
[2021-07-17] MEDS: AMPICILLIN/SULBACTAM 3 GM in SODIUM CHLORIDE 0.9% MINIBAG 100 ML IV SCH ×2 (00:36→05:48)
[2021-07-17] MEDS: DEXTROSE 5%-0.9% NACL 1,000 ML IV SCH (02:32)
[2021-07-17 06:27] LABS: BASOPHILS % (AUTO) 0.2 %; EOSINOPHILS % (AUTO) 0.1 %; HCT - HEMATOCRIT 32.4 % (37.0-47.0); LYMPHOCYTES % (AUTO) 10.1 %; MEAN CORPUSCULAR HEMOGLOBIN 32.8 pg (27.0-31.0); MEAN CORPUSCULAR VOLUME 96.7 fL (81.0-99.0); MEAN PLATELET VOLUME 10.2 fL (7.9-10.8); MONOCYTES # (AUTO) 0.8 10^3/uL (0.0-1.0); MONOCYTES % (AUTO) 8.6 %; NEUTROPHILS # (AUTO) 7.9 10^3/uL (1.5-6.6); NEUTROPHILS % (AUTO) 80.6 %; PLT - PLATELET COUNT 197 10^3/uL (130-450); RED BLOOD COUNT 3.35 10^6/uL (4.20-5.40); RED CELL DISTRIBUTION WIDTH 13.3 % (12.0-15.0); WHITE BLOOD COUNT 9.8 x10^3/uL (4.8-10.8)
[2021-07-17 06:31] LABS: CALCIUM 8.1 mg/dL (8.5-10.3); CREATININE 0.7 mg/dL (0.4-1.0)
[2021-07-17] MEDS ORDERED: ACETAMINOPHEN 160 MG/5 ML SUSP UDC PO PRN (07:52)
[2021-07-17] MEDS ORDERED: lisinopriL 20 MG TABLET PO SCH (09:00)
--- NOTE | 2021-07-17 09:37 | PHARMACY PROGRESS NOTE ---
- Best Possible Medication History Admit Date and Time: 07/16/21 1544 Processed by: Pharmacy Medication History completed: Yes Patient Interview: Pt unable to participate Secondary Source(s): Physician records, Insurance records As the person ultimately responsible for medication therapy, providers are able to order a medication from an existing home medication list in [facility] via the "Reconcile Routine" prior to Confirmation of that medication by production support analyst. Such practice is discouraged except when the physician, in their clinical judgment, deems that a medical need exists for a medication without regard to previous use.
--- NOTE | 2021-07-17 09:41 | PROVIDER PROGRESS NOTE ---
Subjective - General Admit Date: 07/16/21 Procedure Date: 07/16/21 Post Op Days: 1 Procedure Performed: ORIF Lefort I and L lateral orbital rim fractures - Review of Systems Wound/Incisions: positive: Healing well, No drainage General: negative: Fever HEENT: positive: Other (Difficulty swallowing yesterday --> poor PO intake and admit w/ IV fluids.) Pulmonary: positive: No symptoms Cardiovascular: positive: No symptoms Gastrointestinal: positive: No symptoms. negative: Difficulty swallowing (She is swallowing better this am and) Objective - Patient Data Reviewed Vital Signs: Yes Vital Signs: Vital Signs x48h Temp Pulse Resp BP Pulse Ox 07/17/21 07:36 36.4 C L 81 17 150/56 H 94 07/17/21 05:19 36.5 C 72 18 150/67 H 93 Weight: Weight 07/15/21 07/16/21 07/17/21 23:59 23:59 23:59 Weight (kg) 55 kg 55 kg Intake & Output: Intake and Output Totals x24h 07/15/21 07/16/21 07/17/21 23:59 23:59 23:59 Intake Total 118 1275 1265 Balance 118 1275 1265 - Lab Results Lab Results: 07/17/21 06:07 07/17/21 06:07 Other Lab Results: Lab Results x24hrs 07/17/21 07/17/21 07/16/21 Range/Units 06:07 06:07 23:58 WBC 9.8 (4.8-10.8) x10^3/uL RBC 3.35 L (4.20-5.40) 10^6/uL Hgb 11.0 L (12.0-16.0) g/dL Hct 32.4 L (37.0-47.0) % MCV 96.7 (81.0-99.0) fL MCH 32.8 H (27.0-31.0) pg MCHC 34.0 (32.0-36.0) g/dL RDW 13.3 (12.0-15.0) % Plt Count 197 (130-450) 10^3/uL MPV 10.2 (7.9-10.8) fL Neut # (Auto) 7.9 H (1.5-6.6) 10^3/uL Lymph # (Auto) 1.0 L (1.5-3.5) 10^3/uL [place] # (Auto) 0.8 (0.0-1.0) 10^3/uL Eos # (Auto) 0.0 (0.0-0.7) 10^3/uL Baso # (Auto) 0.0 (0.0-0.1) 10^3/uL Absolute Nucleated RBC 0.00 x10^3/uL Nucleated RBC % 0.0 /100WBC Sodium 132 L (135-145) mmol/L Potassium 4.0 (3.5-5.0) mmol/L Chloride 99 L (101-111) mmol/L Carbon Dioxide 26 (21-32) mmol/L Anion Gap 7.0 (6-13) BUN 17 (6-20) mg/dL Creatinine 0.7 (0.4-1.0) mg/dL Estimated GFR (MDRD) 80 L (>89) Glucose 123 H (70-100) mg/dL POC Whole Bld Glucose 166 H (70 - 100) mg/dL Calcium 8.1 L (8.5-10.3) mg/dL Blood Type Blood Type Recheck Antibody Screen 07/16/21 07/16/21 07/16/21 Range/Units 21:16 10:35 05:16 WBC (4.8-10.8) x10^3/uL RBC (4.20-5.40) 10^6/uL Hgb (12.0-16.0) g/dL Hct (37.0-47.0) % MCV (81.0-99.0) fL MCH (27.0-31.0) pg MCHC (32.0-36.0) g/dL RDW (12.0-15.0) % Plt Count (130-450) 10^3/uL MPV (7.9-10.8) fL Neut # (Auto) (1.5-6.6) 10^3/uL Lymph # (Auto) (1.5-3.5) 10^3/uL [place] # (Auto) (0.0-1.0) 10^3/uL Eos # (Auto) (0.0-0.7) 10^3/uL Baso # (Auto) (0.0-0.1) 10^3/uL Absolute Nucleated RBC x10^3/uL Nucleated RBC % /100WBC Sodium (135-145) mmol/L Potassium (3.5-5.0) mmol/L Chloride (101-111) mmol/L Carbon Dioxide (21-32) mmol/L Anion Gap (6-13) BUN (6-20) mg/dL Creatinine (0.4-1.0) mg/dL Estimated GFR (MDRD) (>89) Glucose (70-100) mg/dL POC Whole Bld Glucose 189 H (70 - 100) mg/dL Calcium (8.5-10.3) mg/dL Blood Type O POSITIVE Blood Type Recheck O POSITIVE Antibody Screen NEGATIVE - Current Medications Current Medications: Current Medications Generic Name Dose Route Start Last Admin Trade Name Freq PRN Reason Stop Dose Admin Dextrose/Sodium Chloride 1,000 mls @ 100 mls/hr 07/16/21 16:00 07/17/21 02:32 D5ns IV 07/17/21 11:59 100 mls/hr .Q10H IFEANYI Administration Ampicillin Sodium/Sulbactam 100 mls @ 200 mls/hr 07/16/21 18:00 07/17/21 06:42 Sodium 3 gm/ Sodium Chloride IV Infused Q6HR IFEANYI Infusion Ketorolac Tromethamine 15 mg 07/15/21 21:38 07/16/21 21:56 Ketorolac 15 Mg/Ml Vial IVP 07/20/21 21:37 15 mg Q6HR PRN Administration PAIN Oxycodone HCl 5 mg 07/15/21 19:48 07/16/21 05:34 Oxycodone 5 Mg Tablet PO 5 mg Q4HR PRN Administration Pain 5 to 7 Sodium Chloride 10 ml 07/16/21 01:00 07/17/21 00:07 Sodium Chloride Flush 0.9% 10 Ml Syringe IVP Not Given 0100,0900,1700 [facility] - Physical Exam Eyes Bilateral: positive: Other (Markedly decreased edema of the left face and periorbit. No diplopia. Conjugate gaze in all directions. No proptosis. Incision C,D,I) ENT: positive: Other (Occlusion anatomic. IMF tight and intact. Incision of the maxillary vestibule clean and well closed.) Neck: positive: Other (Decreased swelling. Descending ecchymosis as expected from a large hematoma that occurred in the in the L buccal and periorbital region.) Respiratory: positive: No respiratory distress Neurologic/Psychiatric: positive: Other (Bilateral V2 hypoesthesia, otherwise normal.) Impression/Plan - Problem List Problem List: Leforte I fracture and L lateral orbital rim fracture, POD #1 ORIF of the frac turjamey. Poor PO intake yesterday made her stay in house overnight for IV fluids. Today she has had about 500 mL PO intake. OK for d/c Augmentin BID x 7 days Peridex mouthrinse BID x 6 weeks F/u in my office on Monday for monitoring, and for suture removal. Appreciate IM assistance. Please call w/ any questions. Girma Nolasco DDS [phone]
[2021-07-17] MEDS: KETOROLAC 15 MG/ML VIAL IVP PRN ×2 (09:58→10:06)
[2021-07-17] MEDS ORDERED: CHLORHEXIDINE GLUCONATE 15 ML UDC PO SCH (10:00)
--- NOTE | 2021-07-17 10:16 | OPERATIVE REPORT ---
Operative Report - General Admit Date: 07/16/21 Procedure Date: 07/16/21 Planned Procedure: ORIF Leforte I fracture ORIF L lateral orbital rim fracture Closure of 8mm laceration of the left eyebrow Closure of 1.5 cm laceration of the L upper lip involving the lenora and the intraoral mucosa. Pre-Op Diagnosis: Leforte I fracture, L lateral orbital rim fracture, facial lacerations. Procedure Performed: ORIF Leforte I fracture ORIF L lateral orbital rim fracture Closure of 8mm laceration of the left eyebrow Closure of 1.5 cm laceration of the L upper lip involving the lenora and the intraoral mucosa. Post Op Diagnosis: Leforte I fracture, L lateral orbital rim fracture, facial lacerations. - Procedure Note Primary Surgeon: Girma Nolasco DDS Anesthesia Provider: Ben Alfonso Anesthesia Technique: General ET tube (Via the R naris) Estimated Blood Loss (mL): 100 Indications: 81 yo F s/p mechanical GLF onto asphalt, sustaining multiple facial fractures and two small lacerations. She was evaluated in the ER and noted to have malocclusion and mobility of the maxilla. It was decided that ORIF of the fractures and washout/closure of the lacerations was necessary. The risks, benefits, and alternatives of this procedure were discussed w/ her and her , including pain, swelling, infection, malunion, nonunion, poor cosmesis, malocclusion, damage to teeth, need for further surgeries, vision change, blindness, facial paralysis, numbness in the face, and hardware failure. Adequate time was given to answer all questions and informed consent was obtained. Findings: The patient was brought to the OR and placed in a supine position on the operating table. All pressure points were padded and checked. Her rings could not be removed without cutting them off, so they were monitored for edema. Ge neral anesthesia was induced and the airway was secured w/ a nasal DIOGENES via the right naris. The tube was secured to the forehead in the standarf fashion. The arms were tucked. Lacrilube wasa placed in the L eye and a corneal shield was placed. The R eye was protected w/ a Tegederm. The face was prepped and draped in the standard fashion for repair of facial fractures. Attention was directed to the L lateral rim. A one cm incision was made and tissue deep to the skin was dissected w/ a bovie. The rim was exposed and the fracture was easily identified. It was quite mobile, which is unusual because there is no obvious zygomatic arch fracture. Attention was directed intraorally. A throat pack was placed. CHlorhexidine mouth rinse was used to cleanse the mouth and the teeth were brushed. An incision was made in the maxilla, taking care to protect and avoid the Nancy's ducts. The incision was made down to bone. A subperiosteal dissection was made to expose the lateral aspect of the maxilla on the L and R. Her fracture was somewhat high, almost all the way up to the infraorbital nerve. It was mobile, but only a little, and the fracture of ht eL was very comminuted. On the right there was still good alignment of the bones in a near anatomic position. The oropharynx was again examined and no foreign body could be identified. Hybrid arch bars were then adapted to the maxilla and to the mandible and the patient was placed in IMF. The fractures were reduced. Attention was directed back to the L lateral orbital rim. The fracture was observed to be well reduced. A 4 hole plate and four screws were used to fixate the fracture. Attention was directed intraorally. The L piriform rim was plated. The bone quality was very brittle and low volume, but good stability of the bone screws was achieved. The L zygomatic buttress was then plated with a large, more rigid L plate. The R piriform rim was then plated, followed by the R zygomatic buttress. The maxilla was stable. Irrigated and closed w/ 4-0 vicryl suture. The IMF was released. The throat pack was removed. Occlusion was stable and repeatable. The fracture of the R alveolus was well reduced, with a small remaining diastema. It was decided not to use a circumdental wire to close this diastema because of her delicate dental work and delicate teeth. Her teeth were so delicate they were at risk for loosening during the tightening of the wire. Closed the L lateral brow incision w/ 4-0 vicryl suture and the skin with prolene. Rinsed out both of the wounds on the left eyelid and left upper lip. Closed the L upper lip with vicryl interrupted sutures. Closed the L eyebrow w/ interrupted 5-0 prolene sutures. Rinsed the mouth free of debris. Suctioned the throat. Removed the throat pack. Replaced IMF. Cleansed the face. Removed the L corneal shield. Rinsed the eyes out w/ BSS. The patient was emerged uneventfully from anesthesia and transferred to PACU in stable condition. Complications: none
--- NOTE | 2021-07-17 10:20 | Discharge Plan ---
Discharge Plan Problem Reviewed?: Yes Disposition: Home, Self Care Condition: Stable Prescriptions: Acetaminophen [Tylenol] 640 mg PO Q4HR PRN #1 bottle PRN Reason: Pain 1 to 4 oxyCODONE [Roxicodone] 5 mg PO Q6HR PRN #14 tablet PRN Reason: Pain Oxymetazoline HCl [Afrin] 1 spray NS BID PRN #15 ml PRN Reason: Nasal Congestion Amox/Clav 875/125 [Augmentin 875/125 Tab] 1 tablet PO BID 7 Days #14 tablet Chlorhexidine [Peridex] 15 ml PO BID 42 Days #1 bottle Diet: Soft (Liquid diet only.) Health Concerns: You were admitted to the hospital because of a facial fracture and you went to the OR with the oral maxillofacial surgeon for repair of this fracture. You are now stable for discharge home. Plan of Treatment: Due to the surgery you had, you only able to tolerate a liquid diet and the gauger delivery discussed this with you. Please continue take your blood pressure medication as previously prescribed. This may be crushed. We have prescribed you an antibiotic called Augmentin which you can take twice a day for 7 days to prevent infection. This can also be crushed. You have also been prescribed Peridex mouth rinse which you should use twice a day for 6 weeks. I have also prescribed you pain medication to take as needed. This is called oxycodone which is a narcotic. I have also prescribed a liquid Tylenol to use as needed. You may take the Afrin twice a day as needed but please only take this for 2 to 3 days until you follow-up with Dr. Nolasco. Assessment: The patient expressed understanding of the treatment plan. Additional Instructions or Follow Up instructions: You can follow-up with Dr. Nolasco office this Monday. [place] is [address], [place] [address]. The number for his office is [phone]. No Smoking: If you smoke, Please STOP! Call for help. Follow-up with: Latisha Chandra MD [Primary Care Provider] -
[2021-07-17] MEDS ORDERED: AMOX/CLAV 875 MG/125 MG TABLET PO ONE (11:00)
[2021-07-17] MEDS ORDERED: OXYMETAZOLINE HCL 100 SPRAYS BOTTLE NAS PRN (11:36)
--- NOTE | 2021-07-17 11:37 | DISCHARGE SUMMARY ---
"Discharge Summary Admit Date: 07/15/21 Discharge Date: 07/17/21 Discharging Provider: Dillon Meneses Primary Care Provider: Latisha Chandra Code Status: Attempt Resuscitation Condition at Discharge: Stable Discharge Disposition: 01 Home, Self Care - DIAGNOSES Admission Diagnoses: Fracture of zygomatic complex Hypertensive urgency Left wrist pain Discharge Diagnoses with Status of Each Condition: Fracture of zygomatic complex - improved. Hypertension - stable. Left wrist pain - stable. - HPI History of Present Illness: H&P per Dr. Fischer: Patient is an 81-year-old female who presented to the ED after a mechanical fall. She was living [facility] in [place] around 5 PM when she stepped off the curb lost her footing and fell on the left side hitting the left side of her face. It was a witnessed fall. She did not blackout. She denied dizziness prior to the episode. She has bruising on her left wrist as well. Currently at bedside she denies double vision, blurry vision or headaches. She also denies chest pain, dyspnea, abdominal pain, nausea, vomiting, fever or chills. Work-up in the ED included CT of the head neck and maxillofacial structures. This showed complex bilateral mid radius fractures with elements of LeFort and ZMC complex of note, left inferior orbital floor fracture, displaced and comminuted, without inferior EOM extract meant. It was reported that tooth fragment in the right posterior nasopharynx for which retrieval was recommended however patient was seen by Dr. Girma Nolasco who maintains that the patient has no dentition. Note of the patient's presentation and the current findings she was admitted for further treatment. - CONSULTS | PROCEDURES Consultations: Oral maxillofacial surgery Procedures: She went to the OR on July 16 for ORIF of LeFort I fracture. ORIF of left lateral orbital rim fracture. Closure of 8 mm laceration of the left eyebrow. Closure of 1.5 cm laceration of the left upper lip involving the vermilion and the intraoral mucosa. - HOSPITAL COURSE Hospital Course: She was admitted to the floor for the LeFort I fracture and left lateral orbital rim fracture. She started on Unasyn IV empirically. Her blood pressure is noted to be elevated with systolics in the 180s and she was treated with IV antihypertensives until her home lisinopril was resumed. She went to the OR the following day with oral maxillofacial surgery for the procedure performed above. She had difficulty with oral intake that day and so she remained hospitalized for 1 more night. Nutrition saw her and discussed with her the liquid diet that was planned for the next 30 days. She is able to increase her oral intake and was discharged after two midnights. She was prescribed Augmentin twice daily for 7 more days as well as peridex mouth rinse as recommended by oral maxillofacial surgery. She was provided with 14 tablets of oxycodone. She will follow up with [facility] in 2 days. - ALLERGIES Allergies/Adverse Reactions: Allergies Allergy/AdvReac Type Severity Reaction Status Date / Time pravastatin Allergy Unknown Verified 07/15/21 19:59 - MEDICATIONS Home Medications: Ambulatory Orders Medication Instructions Recorded Confirmed lisinopriL [Lisinopril] 20 mg PO DAILY 07/16/21 07/16/21 Acetaminophen [Tylenol] 640 mg PO Q4HR PRN #1 bottle 07/17/21 Amox/Clav 875/125 [Augmentin 1 tablet PO BID 7 Days #14 tablet 07/17/21 875/125 Tab] Chlorhexidine [Peridex] 15 ml PO BID 42 Days #1 bottle 07/17/21 Oxymetazoline HCl [Afrin] 1 spray NS BID PRN #15 ml 07/17/21 oxyCODONE [Roxicodone] 5 mg PO Q6HR PRN #14 tablet 07/17/21 - PHYSICAL EXAM AT DISCHARGE General Appearance: positive: No acute distress, Alert Eyes Bilateral: positive: Normal inspection, PERRL, Other (There is edema of the left orbit with surrounding ecchymosis.) ENT: positive: Other (There is facial edema predominately over the left side with surrounding ecchymosis.) Neck: positive: Other (Ecchymosis over the left neck) Respiratory: positive: No respiratory distress. negative: Wheezes, Rales Cardiovascular: positive: Regular rate & rhythm, No murmur. negative: Tachycardia Abdomen: positive: Non-tender, No distention. negative: Tenderness Skin: positive: Warm, Dry, Other (Multiple areas of ecchymosis over the left orbit, left shoulder and left arm.) Extremities: positive: Other (There is minor swelling of the left wrist and hand.) Physical Exam Other/Comments: Vital Signs - 24 hr 07/16/21 07/16/21 07/17/21 21:29 23:55 05:19 Temperature 36.6 C 36.6 C 36.5 C Heart Rate [ 79 73 72 Brachial] Respiratory 14 18 18 Rate Blood Pressure 137/63 H 129/59 L 150/67 H [Right Brachial artery] O2 Saturation 96 96 93 07/17/21 07/17/21 07:36 11:47 Temperature 36.4 C L 36.4 C L Heart Rate [ 81 73 Brachial] Respiratory 17 18 Rate Blood Pressure 150/56 H 175/70 H [Right Brachial artery] O2 Saturation 94 97 Oxygen O2 Source Room air - LABS Result Diagrams: 07/17/21 06:07 07/17/21 06:07 - DIAGNOSTIC IMAGING Diagnostic Imaging Results: Final report reviewed - FOLLOW UP Follow Up: She will follow up with [facility] in 2 days. She was directed to take her lisinopril crushed as well as the Augmentin. - TIME SPENT Time Spent in Discharge (Minutes): 32"
[2021-07-17 11:48] VITALS: BP 175/70
== END 2021-07-17 11:50 | disposition home or self-care (01) | DRG 158 ==
LOC: ED 17:46 → MS2 19:48 → OBSVTOIN 07-16 15:44 → MERGE 07-16 15:44
PROVIDERS: ADMIT Internal Medicine; ATTEND Internal Medicine
PROC: 0NSQ04Z Reposition Left Orbit with Internal Fixation Device, Open Approach (ICD-10-PCS; 2021-07-16)
PROC: 0NUQ0JZ Supplement Left Orbit with Synthetic Substitute, Open Approach (ICD-10-PCS; 2021-07-16)
PROC: 0CQ00ZZ Repair Upper Lip, Open Approach (ICD-10-PCS; 2021-07-16)
PROC: 0HQ1XZZ Repair Face Skin, External Approach (ICD-10-PCS; 2021-07-16)
PROC: 0NSR04Z Reposition Maxilla with Internal Fixation Device, Open Approach (ICD-10-PCS; principal; 2021-07-16 11:00)
DX: S02.411A LeFort I fracture, initial encounter for closed fracture (principal); S02.42XA Fracture of alveolus of maxilla, initial encounter for closed fracture; S02.842A Fracture of lateral orbital wall, left side, initial encounter for closed fracture; E87.1 Hypo-osmolality and hyponatremia; W10.1XXA Fall (on)(from) sidewalk curb, initial encounter; Y92.512 Supermarket, store or market as the place of occurrence of the external cause; S01.112A Laceration without foreign body of left eyelid and periocular area, initial encounter; S01.511A Laceration without foreign body of lip, initial encounter; S63.502A Unspecified sprain of left wrist, initial encounter; I10 Essential (primary) hypertension; Z85.038 Personal history of other malignant neoplasm of large intestine; Z20.822 Contact with and (suspected) exposure to COVID-19; Z90.49 Acquired absence of other specified parts of digestive tract; F17.210 Nicotine dependence, cigarettes, uncomplicated; I16.0 Hypertensive urgency
CPT/HCPCS: 12015; 21406; 21422; 36415; 70450; 70486; 72125; 73110; 80048; 85025; 85610; 86850; 86900; 86901; 87631; 93005; 96374; 96375; 99283; 99285; A9270; C1713; G0378; J1170; J7120; 0202U

== ENCOUNTER 2022-05-21 17:03 | Outpatient (CLI) | payer MEDICARE, OTHER | END 2022-05-21 23:59 | disposition EMS.NT | LOC: EMS 17:03 | DX: R55 Syncope and collapse (principal) ==

== ENCOUNTER 2023-11-09 08:23 | Day surgery (SDC) | payer MEDICARE, OTHER ==
[2023-11-09] MEDS: LACTATED RINGERS 1,000 ML IV ONE (08:54)
[2023-11-09] MEDS: PROPARACAINE 0.5% OPHTH DROPS 15 ML ONE (08:54)
[2023-11-09] MEDS: KETOROLAC 0.45% OPHTH DROPS ONE (08:55)
[2023-11-09] MEDS: PHENYLEPHRINE 2.5% OPHTH 2 ML DROPS ONE (08:55)
[2023-11-09] MEDS ORDERED: TIMOLOL 0.5% OPHTH DROPS ONE (09:26)
[2023-11-09] MEDS ORDERED: BSS/LIDOCAINE/EPINEPHRINE 1 ML VIAL ONE (09:26)
[2023-11-09] MEDS ORDERED: BRIMONIDINE 0.2% OPHTH DROPS 5 ML ONE (09:26)
[2023-11-09] MEDS ORDERED: EPINEPHrine 1 MG/ML AMP ONE (09:26)
[2023-11-09] MEDS ORDERED: TRIAMCIN/MOXIFLOX OPHTHALMIC 0.6 ML VIAL IO ONE (09:26)
[2023-11-09] MEDS: BRIMONIDINE 0.2% OPHTH DROPS 5 ML OPTH ONE (09:38)
[2023-11-09] MEDS: EPINEPHrine 1 MG/ML AMP IR ONE (09:38)
[2023-11-09] MEDS: TIMOLOL 0.5% OPHTH DROPS OPTH ONE (09:42)
[2023-11-09] MEDS: BSS/LIDOCAINE/EPINEPHRINE 1 ML SYRINGE IO ONE (09:43)
[2023-11-09] MEDS: PROPARACAINE 0.5% OPHTH DROPS 15 ML EACHEYE ONE (09:44)
[2023-11-09] MEDS: VANCOMYCIN OPHTH (TOPICAL) 10 MG/ML SYRINGE TOP ONE (09:44)
[2023-11-09] MEDS: TRIAMCIN/MOXIFLOX OPHTHALMIC 0.6 ML VIAL IO ONE (09:44)
--- NOTE | 2023-11-09 09:49 | ANESTHESIA ---
Pre-Anesthesia VS, & Labs - Diagnosis RIGHT EYE CATARACT - Procedure CE IOL OD Vital Signs: Temp Pulse Resp BP Pulse Ox O2 Flow Rate 36.8 C 72 16 153/75 H 100 11/09/23 08:56 11/09/23 08:56 11/09/23 08:56 11/09/23 08:56 11/09/23 08:56 Height: 5 ft 7 in Weight (kg): 53.5 kg Body Mass Index: 18.4 BMI Classification: Underweight - NPO >8 hours - Is Patient ?: No Home Medications and Allergies Home Medications: Ambulatory Orders Aspirin EC [Ecotrin] 162 mg PO DAILY 11/08/23 Cholecalciferol [Vitamin D3] 1,000 unit PO BID 11/08/23 Multivitamin 1 each PO DAILY 11/08/23 lisinopriL [Lisinopril] 20 mg PO DAILY 07/16/21 Aspirin EC [Ecotrin] 162 mg PO DAILY 11/08/23 Cholecalciferol [Vitamin D3] 1,000 unit PO BID 11/08/23 Multivitamin 1 each PO DAILY 11/08/23 Allergies/Adverse Reactions: Allergies Allergy/AdvReac Type Severity Reaction Status Date / Time bevacizumab [From Avastin] Allergy Edema Verified 11/09/23 09:02 pravastatin Allergy Unknown Verified 11/09/23 09:02 Anes History & Medical History - Anesthetic History Anesthesia Complications: reports: No previous complications Family history of Anesthesia Complications: Denies - Medical History Cardiovascular: reports: Hypertension Pulmonary: reports: None Gastrointestinal: reports: None Urinary: reports: None Neuro: reports: None Musculoskeletal: reports: None Endocrine/Autoimmune: reports: None Blood Disorders: reports: None Skin: reports: Psoriasis Smoking Status: Current every day smoker Psychosocial: reports: No issues indicated - Surgical History General: reports: Bowel surgery Eyes Ears Nose Throat (EENT): reports: Tonsil/Adenoidectomy Gynecologic: reports: section Orthopedic: reports: Other Results - EKG Results EKG Comparison: Reviewed EKG Exam General: Alert Dental: WNL Mouth Openin Fingerbreadth Neck Mobility: Reduced Mallampati classification: II Respiratory: Lungs clear Cardiovascular: Regular rate Plan Anesthesia Type: MAC Consent for Procedure(s) Verified and Reviewed: Yes Code Status: Attempt Resuscitation ASA classification: 2-Mild systemic disease Is this case an emergency?: No
[2023-11-09] MEDS ORDERED: MIDAZOLAM 2 MG/2 ML VIAL ONE (09:56)
[2023-11-09] MEDS: LACTATED RINGERS 900 ML IV ONE (10:12)
--- NOTE | 2023-11-09 10:14 | OPERATIVE REPORT ---
Operative Report - Other Other Information/Narrative: Date of Surgery: 11/09/23 Preop Dx: Visually significant cataract right eye. This was the first cataract surgery. Postop Dx: Same Procedure: Phacoemulsification with posterior chamber intraocular lens implant right eye Surgeon: Dr. Dennis Vital Anesthesia: Monitored anesthesia care Complications: None Operative Indications: This is a 83-year-old F with progressive vision loss in the right eye due to 3-4+ nuclear sclerotic, 3+ cortical, 1+ posterior subcapsular, and vacuolar cataract. Best corrected visual acuity was 20/30 with glare to 20/800 vision in the right eye. Indications for surgery were: - Overall decrease in vision - Difficulty seeing words on a computer screen - Difficulty reading - Difficulty driving in low light or at night - Difficulty driving at night because of headlights from other vehicles - Difficulty with glare or bright lights in any situation The patient was consented at length concerning the risks and benefits of cataract surgery after which the patient expressed a desire to proceed with surgery. Operative Procedure: The patient was taken into OR#3 and placed under monitored anesthesia care. A surgical time-out was conducted confirming correct patient, correct procedure, and correct surgical site. The patient was given topical anesthesia and then prepped and draped in the usual sterile fashion. The eye was entered at the 6 and 3 oclock positions. Intracameral Shugarcaine was injected into the anterior chamber followed by a dispersive viscoelastic. A continuous-tear curvilinear capsulorhexis was performed. The nucleus was hydrodissected and phacoemulsified. The cortex was evacuated using automated infusion and aspiration. A cohesive viscoelastic was injected into the capsular bag and a 21.5 diopter intraocular lens was inserted into the bag. Infusion and aspiration were used to evacuate the viscoelastic materials from the eye. The wounds were hydrated and the eye inflated to physiologic pressure using balanced salt solution. Approximately 0.25ml of a mixture of triamcinolone and moxifloxacin was injected trans-sclerally into the vitreous in the inferotemporal quadrant using a 30 gauge cannula. An additional 0.25ml of a mixture of triamcinolone and moxifloxacin was injected subconjunctivally in the superior quadrant for infection and inflammation prophylaxis. Wound integrity was checked with Weck-Marta sponges. The patient was taken from the operating room in good condition and given post-op instructions.
[2023-11-09 10:41] VITALS: O2SAT 96
--- NOTE | 2023-11-09 10:46 | ANESTHESIA POST OP EVALUATION ---
Anesthesia Post Eval - Post Anesthesia Eval Vitals: Last Vital Signs Temp 36.3 C L 11/09/23 10:42 Pulse 72 11/09/23 10:42 Resp 16 11/09/23 10:42 BP 140/70 H 11/09/23 10:42 Pulse Ox 96 11/09/23 10:42 O2 Flow Rate CV Function Including HR & BP: Stable Pain Control: Satisfactory Nausea & Vomiting: Negative Mental Status: Baseline Respiratory Status: Airway Patent Hydration Status: Satisfactory Anesthesia Complications: None
[2023-11-09 10:51] VITALS: BP 140/70
== END 2023-11-09 08:24 | disposition home or self-care (01) ==
LOC: SDS 08:23
PROVIDERS: ATTEND Ophthalmology
DX: H25.811 Combined forms of age-related cataract, right eye (principal); I10 Essential (primary) hypertension; F17.200 Nicotine dependence, unspecified, uncomplicated
CPT/HCPCS: 66984; A9270; J3490; J7120

== ENCOUNTER 2024-03-19 12:42 | Outpatient (CLI) | payer MEDICARE, OTHER ==
--- NOTE | 2024-03-19 13:18 | XRAY Report ---
PROCEDURE: Tib/Fib LT INDICATIONS: UNSPECIFIED OPEN WOUND, LEFT LOWER LEG TECHNIQUE: 2 views of the left tibia and fibula were acquired. COMPARISON: None. FINDINGS: Bones: Patient is status post left tibial rodding of the distal diaphyseal left tibial fracture. Als o present is a comminuted the fracture involving the midshaft of the patient's left fibula. Do not see evidence for new acute osseous abnormality. Surgical hardware appears in good position wit hout evidence for hardware complication. No definite findings to suggest osteomyelitis. Soft tissues: No suspicious soft tissue calcifications or masses. IMPRESSION: 1. Satisfactory appearance of left tibial rodding transfixing a distal diaphyseal left tibial fractur e. 2. Comminuted the fracture midshaft left fibula. 3. No definite evidence for new acute osseous abnormality or osteomyelitis. Reviewed by: Loki Ha MD on 03/19/2024 1:17 PM PDT Approved by: Loki Ha MD on 03/19/2024 1:17 PM PDT Station ID: [id number]
== END 2024-03-19 12:43 | disposition home or self-care (01) ==
LOC: DI 12:42
PROVIDERS: ATTEND Physician Assistant
DX: S82.392D Other fracture of lower end of left tibia, subsequent encounter for closed fracture with routine healing (principal); S82.452D Displaced comminuted fracture of shaft of left fibula, subsequent encounter for closed fracture with routine healing